=== PATIENT | female | born 1985 | race Asian ===

== ENCOUNTER 2025-07-26 09:08 | Observation (INO) | payer BC ==
--- NOTE | 2025-07-26 10:08 | DVH ---
BIOPHYSICAL PROFILE HISTORY: AMA TECHNIQUE: Multiple transabdominal real-time grayscale sonographic images through the gravid uterus of the fetus with duplex Doppler color flow and M-mode spectral analysis FINDINGS: BIOPHYSICAL PROFILE: breathing score: 2 movement score: 2 tone score: 2 Quantitative KEYANA score: 2 (KEYANA: 12 Cm.) Total score: 8 The cervix was not seen Single live fetus in cephalic presentation. heart rate 126 beats per minute. Grade II anterior placenta without previa or abruption IMPRESSION: Biophysical profile score: 8/8
[2025-07-26] MEDS ORDERED: PREN-96 PO (11:08)
[2025-07-26 11:40] LABS: Hematocrit 36.7 % (36.0-46.0); Hemoglobin 12.3 g/dL (12.2-16.2); Mean Corpuscular Hemoglobin 27.5 pg (28.0-32.0); Mean Corpuscular Volume 82.3 fL (80.0-100.0); Nucleated Red Blood Cells % 0.0 %
[2025-07-26 11:50] LABS: INR 0.86 (0.9-1.15); Partial Thromboplastin Time 23.8 SEC (24.5-34.5); Prothrombin Time 9.3 sec (9.3-11.8)
[2025-07-26 11:51] LABS: Urine Protein, UAD TRACE (Negative)
[2025-07-26 12:04] LABS: Albumin 4.3 g/dL (3.2-4.8); Anion Gap 9 (5-15); BUN/Creatinine Ratio 10.9 (10.0-20.0); Bilirubin, Total 0.4 mg/dL (0.2-1.0); Calcium 9.4 mg/dL (8.7-10.4); Carbon Dioxide 24 mmol/L (20-31); Chloride 103 mmol/L (98-107); Potassium 4.3 mmol/L (3.5-5.1); Sodium 136 mmol/L (136-145); Total Protein 7.5 g/dL (5.7-8.2); Uric Acid 5.4 mg/dL (3.1-7.8)
[2025-07-26 12:05] LABS: Alanine Aminotransferase 186 U/L (7-40); Alkaline Phosphatase 236 U/L (46-116); Blood Urea Nitrogen 7 mg/dL (9-23); Glucose 68 mg/dL (74-106)
[2025-07-26 12:15] LABS: Protein, Urine 24.8 mg/dL (1-14)
--- NOTE | 2025-07-26 13:06 | DVHDS2 ---
Physician Discharge Progress N Final Diagnosis: ama 36wks Operations or Procedures: Operations or Procedures nst reactive reviwed,sono Condition on Discharge: Good Disposition: Home Discharge Instructions: Diet: Regular Activity: No Restrictions, As Tolerated Medications: na Follow Up Care: Specialist: 1w Discharge Statement: "Patient was advised to return to the ER or call 911 if any headaches, dizziness, shortness of breath, chest pain, abdominal pain, bleeding, fevers, or worsening of medical condition. Patient was counseled about treatment plan, medications, possible side effects, patientverbalized understanding. All questions were answered to the best of my ability. This discharge took greater then 30 minutes in planning, reviewing documentat ion, counseling the patient, and discussing with other team members." Visit Coding OBGYN Date of Service: Jul 26, 2025 Billing Provider: LIN TATE DO KNAPSACK SPRAYER Common Visit Codes: 28814-[id number] OBS CARE (HIGH) KNAPSACK SPRAYER Procedure Codes: 02229-85- NON-STRESS TEST LIN TATE DO Jul 26, 2025 13:06
== END 2025-07-26 11:22 | disposition home or self-care (01) ==
LOC: LDRP 09:08 → UNDOADMOB 09:08 → LDRP 09:29
PROVIDERS: ADMIT Obstetrics & Gynecology; ATTEND Obstetrics & Gynecology
DX: O09.523 Supervision of elderly multigravida, third trimester (principal); R79.1 Abnormal coagulation profile; Z3A.36 36 weeks gestation of pregnancy; Z79.899 Other long term (current) drug therapy; Z98.890 Other specified postprocedural states
CPT/HCPCS: 36415; 76818; 80053; 81001; 82570; 84156; 84550; 85025; 85610; 85730; G0378; 76819

== ENCOUNTER 2025-07-26 17:25 | Inpatient (IN) | payer BC ==
[~2025-07-26 17:25] MED LIST: PREN-96 PO
[2025-07-26 18:00] LABS: Hematocrit 34.8 % (36.0-46.0); Hemoglobin 11.7 g/dL (12.2-16.2); Mean Corpuscular Hemoglobin 27.7 pg (28.0-32.0); Mean Corpuscular Volume 82.1 fL (80.0-100.0); Nucleated Red Blood Cells % 0.0 %
[2025-07-26 18:13] LABS: Albumin 4.1 g/dL (3.2-4.8); Anion Gap 12 (5-15); BUN/Creatinine Ratio 16.7 (10.0-20.0); Blood Urea Nitrogen 10 mg/dL (9-23); Calcium 9.6 mg/dL (8.7-10.4); Chloride 105 mmol/L (98-107); Glucose 91 mg/dL (74-106); Potassium 4.2 mmol/L (3.5-5.1); Sodium 137 mmol/L (136-145); Total Protein 7.2 g/dL (5.7-8.2); Uric Acid 5.3 mg/dL (3.1-7.8)
[2025-07-26 18:24] LABS: Alanine Aminotransferase 192 U/L (7-40); Alkaline Phosphatase 230 U/L (46-116); Bilirubin, Total 0.3 mg/dL (0.2-1.0); Carbon Dioxide 20 mmol/L (20-31)
[2025-07-26 18:28] LABS: INR 0.88 (0.9-1.15); Partial Thromboplastin Time 23.5 SEC (24.5-34.5); Prothrombin Time 9.4 sec (9.3-11.8)
[2025-07-26 19:35] LABS: Protein, Urine 10.3 mg/dL (1-14)
[2025-07-26 19:44] LABS: Urine Protein, UAD Negative (Negative)
--- NOTE | 2025-07-26 20:20 | DVHHP ---
ADMIT DATE: 07/26/2025 CHIEF COMPLAINT: Elevated blood pressure, proteinuria. HISTORY OF PRESENT ILLNESS: The patient is a 40-year-old 1, para 0 with EDC 08/17, estimated gestational age of 36 weeks, admitted for atypical HELLP, preeclampsia. The patient was seen earlier for elevated blood pressure. Labs were done, which revealed elevated liver enzymes. The patient had to leave before reviewing the labs. She was then called back in for repeat labs, which showed higher elevation of AST and ALT. There is 1+ proteinuria and blood pressure is now rising. Earlier was normal; however, this evening is 140/89. Estimated weight is approximately 6 pounds 4 ounces. Vertex presentation. Subsequently, the patient is admitted to be transferred to [facility]. Spoke to Dr. Zapata earlier. Plan was to repeat the labs. With worsening of the labs, the patient will be transferred. PAST MEDICAL HISTORY: None. PAST SURGICAL HISTORY: None. SOCIAL HISTORY: None. FAMILY HISTORY: None. [employer] WORKER HISTORY: Primigravida, AMA. ALLERGIES: No known drug allergies. REVIEW OF SYSTEMS: Consistent with HPI. PHYSICAL EXAMINATION: VITAL SIGNS: Blood pressure 138/89. HEENT: Within normal limits. CARDIOVASCULAR: Regular rate and rhythm. LUNGS: Clear to auscultation. BREASTS: Symmetrical. No masses. ABDOMEN: Gravid. Estimated weight 6 pounds. PELVIC: Cervix soft, closed, -2. EXTREMITIES: No clubbing, cyanosis or edema. IMPRESSION: * Intrauterine at 36+ weeks with preeclampsia, impending HELLP. * AMA. PLAN: Transfer to [facility]. The patient is completely stable for transfer. The patient agrees with plan. DO ZENOBIA Corrales TID: [id number] RECEIPT: [id number]
--- NOTE | 2025-07-28 08:36 | DVHTS ---
Transfer Summary Transfer Summary Date of Admission Jul 26, 2025 at 19:50 Date of Transfer: Jul 26, 2025 Transfer Diagnosis ama,36wks with pih Brief Hx & Hospital Course: pt admitted for abn labs,pih and transferred to [facility] Transfer to: [facility] dr shahid and dr nina accepted transfer Discharge Instructions: via air Transfer Status stable Scheduled Vit W/ Ferrous Fumara ( One Daily), 1 TAB PO DAILY, (Reported) Visit Coding OBGYN Date of Service: Jul 26, 2025 Billing Provider: LIN TATE DO RESISTANCE WELDER Common Visit Codes: [id number] INP/OBS CARE (HIGH) RESISTANCE WELDER Procedure Codes: 94108-63- NON-STRESS TEST LIN TATE DO Jul 28, 2025 08:35
--- NOTE | 2025-07-28 08:37 | DVHDS2 ---
Physician Discharge Progress N Final Diagnosis: TRANSFER TO [facility] for pih,ama,36wks Operations or Procedures: Operations or Procedures nst reactive reviwed,sono,labs Condition on Discharge: Higher Level of Care Disposition: Acute Care Facility Discharge Instructions: Diet: Regular, See Comment Activity: Bed rest Medications: na Follow Up Care: Specialist: to [facility] Discharge Statement: "Patient was advised to return to the ER or call 911 if any headaches, dizziness, shortness of breath, chest pain, abdominal pain, bleeding, fevers, or worsening of medical condition. Patient was counseled about treatment plan, medications, possible side effects, patientverbalized understanding. All questions were answered to the best of my ability. This discharge took greater then 30 minutes in planning, reviewing documentation, counseling the patient, and discussing with other team members." Visit Coding OBGYN Date of Service: Jul 26, 2025 Billing Provider: LIN TATE DO HEAT TREATING OPERATOR Common Visit Codes: 63253-[id number] INP/OBS CARE (HIGH) HEAT TREATING OPERATOR Procedure Codes: 27405-11- NON-STRESS TEST LIN TATE DO Jul 28, 2025 08:37
== END 2025-07-26 22:21 | disposition short-term general hospital (02) | DRG 832 ==
LOC: LDRP 17:25 → OBSVTOIN 19:50
PROVIDERS: ADMIT Obstetrics & Gynecology; ATTEND Obstetrics & Gynecology
DX: O14.23 HELLP syndrome (HELLP), third trimester (principal); O12.13 Gestational proteinuria, third trimester; O13.3 Gestational [pregnancy-induced] hypertension without significant proteinuria, third trimester; Z3A.36 36 weeks gestation of pregnancy; O09.513 Supervision of elderly primigravida, third trimester
CPT/HCPCS: 36415; 59025; 80053; 81001; 81002; 82570; 84156; 84550; 85025; 85610; 85730; 96360; 96361; G0378